=== PATIENT | female | born 1940 | race Caucasian/White ===

== ENCOUNTER 2018-11-24 13:51 | Observation (INO) ==
--- NOTE | 2018-11-24 14:09 | Emergency Department Note ---
Disposition Clinical Impression: Confusion with non-focal neuro exam, Nausea UTI (urinary tract infection) Qualifiers: Urinary tract infection type: site unspecified Hematuria presence: without hematuria Qualified Code(s): N39.0 - Urinary tract infection, site not specified Diarrhea Qualifiers: Diarrhea type: unspecified type Qualified Code(s): R19.7 - Diarrhea, u nspecified Disposition: Admitted As Inpatient Condition: Good Referrals: NONE,PCP [Non-Partnered Physician] - Forms: ED Satisfaction Letter Time of Disposition: 16:44 General Adult HPI - General Chief complaint: ED Weakness Stated complaint: medication reaction Source: patient, EMS Mode of arrival: EMS Limitations: no limitations Nursing Notes Reviewed: Yes Vital Signs Reviewed: Yes - History of Present Illness HPI Narrative: Patient presents to the ED via EMS with concern that she may be having a reaction to a new medication. She states her physician Paco Chavez started her on a new medication. She cannot recall the name of the medication or what it was prescribed for. She states she took the first dose of it last night. Today she has been feeling shaky, anxious and lightheaded as if she is "not in control". She also reports a few episodes of loose watery stools today. No blood noted. No vomiting or abdominal pain. States she was nauseous on the way to the ED but is no longer nauseated now. No chest pain or shortness of breath. She does report some palpitations however. No fever or chills. No urinary symptoms. No recent travel or sick contacts. She lives alone in an assisted living facility. States she called EMS because she did not know what else to do was scared about how she was feeling. Based on her medication list in the computer which is not updated she has a history of Alzheimer's and Parkinson's as well as depression. She denies any tobacco, alcohol or drug use. She has not taken any medications other than her other prescribed medications. - Related Data Home Medications Medication Instructions Recorded Confirmed Galantamine HBr [Razadyne ER] 24 mg PO DAILY 03/24/18 11/24/18 Latanoprost/Pf [Latanoprost 0.005% 1 drop OP DAILY 03/24/18 11/24/18 Eye Drop] Sertraline [Zoloft] 100 mg PO DAILY 03/24/18 11/24/18 Levothyroxine [Synthroid] 50 mcg PO DAILY 11/24/18 11/24/18 Allergies Allergy/AdvReac Type Severity Reaction Status Date / Time Penicillins [PCN] Allergy Hives Verified 04/21/18 13:09 cephalexin AdvReac Shakiness Verified 04/21/18 13:09 Mytlqfd-[id number]-Xru Reductase AdvReac See Verified 04/21/18 13:09 Inhibitor Comments [Statins] Constitutional: Denies: fever, chills, weakness, weight change Eyes: Denies: eye pain, eye discharge, vision change ENT ED: Denies: ear pain, throat pain, dental pain, hearing loss, epistaxis, congestion, dysphagia Cardiovascular: Reports: palpitations. Denies: chest pain, dyspnea on exertion, edema, syncope Respiratory: Denies: cough, dyspnea, wheezes, hemoptysis, stridor Gastrointestinal: Reports: diarrhea. Denies: abdominal pain, nausea, vomiting, constipation, hematemesis, melena, hematochezia Genitourinary: Denies: dysuria, frequency, hematuria, discharge Musculoskeletal: Denies: back pain, neck pain, arthralgia, myalgia Integumentary: Denies: rash, abrasion, lesions Neurological: Denies: headache, weakness, numbness, paresthesias, confusion, abnormal gait, vertigo Psychiatric: Reports: anxiety. 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 - Social History Smoking Status: Never smoker Smokeless Tobacco Status: No Alcohol use: Reports: none Drug use: Reports: none Physical Exam - General Limitations: no limitations General appearance: alert, in no apparent distress, anxious - Head Head exam: atraumatic, normocephalic, normal inspection - Eye Eye exam: Present: normal appearance, PERRL, EOMI - ENT ENT exam: normal exam, normal oropharynx, mucous membranes moist - Neck Neck exam: Present: normal inspection, full ROM, trachea midline - Chest Chest inspection: Present: normal inspection, symmetric chest wall rise - Respiratory Respiratory exam: Present: normal lung sounds bilaterally - Cardiovascular Cardiovascular exam: Present: regular rate, normal rhythm, normal heart sounds - Abdominal Exam Abdominal exam: Present: soft, Non-Tender. Absent: tenderness, distention, guarding, rebound, rigidity - Extremities Exam Extremities exam: Present: normal inspection, full ROM. Absent: tenderness, pedal edema - Back Exam Back exam: Present: normal inspection, full ROM. Absent: tenderness, CVA tenderness (R), CVA tenderness (L) - Neurological Exam Neurological exam: Present: alert, oriented X3 - Psychiatric Psychiatric exam: Present: normal affect, normal mood - Skin Skin exam: Present: warm, dry, intact, normal color Course Course Narrative: Patient presents to the ED complaining of feeling anxious, shaky and lightheaded with some palpitations after restarting the medication. She does not know her medications. According to computer records she has on Zoloft, carbidopa levodopa, doxycycline, latanoprost and galantamine. We are contacting [facility]'s pharmacy for additional information and have received some preliminary documentation that also includes levothyroxine as a medication. On arrival patient is afebrile, hemodynamically stable and nontoxic in appearance other she is slightly anxious. She is oriented to name and place but has some confusion about the date. Physical exam is overall unremarkable. EKG shows a sinus rhythm with multiple PVCs and evidence of LVH and possibly left atrial enlargement. There is no acute ischemic changes. Will look for prior's for comparison. Will obtain chest x-ray and lab work. - Reevaluation(s) Reevaluation #1: Patient has developed nausea again and will be given Zofran. Medication records from [facility] shows that patient most recently had a refill of Zoloft, 100 mg on or about November 06, levothyroxine 50 g on or around November 04 and galantamine ER 24 mg on or around October 26 based on refill due dates. The pharmacist did tell nursing staff that the Zoloft and galantamine doses have been increased from what they were in the past although it is unclear when those doses were increased. The only other active medication on the patient's list is latanoprost eyedrops. Time: 14:44 Reevaluation #2: Laboratory studies are unremarkable other than the possibility of a UTI. Chest x-ray was normal along with TSH and troponin. It remains unclear what medication the patient is referring to that she is insistent that she is on a new medication and does not use any other pharmacy. Her confusion may be due to UTI or simply a complication of her age and dementia. Patient is still having some loose stools and nausea. I discussed with patient the option of admission for monitoring and further evaluation and she is in agreement. We have paged the hospitalist and are awaiting callback at this time. Time: 16:33 Reevaluation #3: I spoke to the hospitalist, Dr. Linda was agreed to accept patient. Time: 16:43 Vital Signs Temperature 97.7 F 11/24/18 13:56 Pulse Rate 59 11/24/18 13:56 Respiratory Rate 18 11/24/18 13:56 Blood Pressure 130/55 11/24/18 13:56 O2 Sat by Pulse Oximetry 97 11/24/18 13:56 Temperature 97.7 F 11/24/18 13:56 Pulse Rate 58 11/24/18 16:33 Respiratory Rate 18 11/24/18 16:33 Blood Pressure 133/60 11/24/18 16:33 O2 Sat by Pulse Oximetry 98 11/24/18 16:33 Oxygen Delivery Oxygen Delivery Room Air Medical Decision Making - Medical Records Medical records reviewed: Yes I reviewed the patient's medical records. - Lab Data Lab results reviewed: Yes I reviewed the patient's lab results. Result diagrams: 11/24/18 14:25 11/24/18 14:25 Lab Results 11/24/18 11/24/18 11/24/18 Range/Units 14:25 14:25 14:25 WBC 9.5 (4.3-11.1) K/mcL RBC 4.23 (3.82-4.97) M/mcL Hgb 13.2 (11.5-15.4) g/dL Hct 39.7 (35.3-44.9) % MCV 93.9 (83.0-100.0) fL MCH 31.2 (28.0-33.3) pg MCHC 33.2 (31.6-35.5) g/dL RDW 13.7 (11.5-14.5) % Plt Count 161 (140-400) K/mcL MPV 11.5 (9.4-12.4) fL Immature Gran % 0.3 (0-4) % Seg Neutrophils % 87.1 % Lymphocytes % 8.0 % Monocytes % 4.1 % Eosinophils % 0.2 % Basophils % 0.3 % Neutrophils # 8.2 (1.6-8.9) K/mcL Lymphocytes # 0.8 (0.6-4.6) K/mcL Monocytes # 0.4 (0.0-1.3) K/mcL Eosinophils # 0.0 (0.0-0.6) K/mcL Basophils # 0.0 (0.0-0.2) K/mcL Sodium 137 (136-145) mEq/L Potassium 3.7 (3.5-5.1) mEq/L Chloride 103 (98-107) mEq/L Carbon Dioxide 23 (23-29) mEq/L BUN 15 (8-23) mg/dL Creatinine 0.84 (0.60-1.20) mg/dL Est GFR ( Amer) > 60 (> 60) Est GFR (Non-Af Amer) > 60 (> 60) BUN/Creatinine Ratio 18 (6-26) Glucose 166 H (70-105) mg/dL Calculated Osmolality 289 (280-300) Calcium 8.7 (8.6-10.3) mg/dL Total Bilirubin 0.4 (0.3-1.0) mg/dL AST 27 (13-39) Units/L ALT 19 (7-52) Units/L Alkaline Phosphatase 84 (34-104) Units/L Troponin I < 0.03 (< 0.04) ng/mL Serum Total Protein 6.5 (6.4-8.9) g/dL Albumin 3.8 (3.5-5.7) g/dL Globulin 2.7 (2.4-3.5) g/dL Albumin/Globulin Ratio 1.4 (1.1-2.2) TSH 1.319 (0.340-5.600) mcIU/mL Urine Color (Yellow) Urine Clarity (Clear) Urine pH (5.0-8.0) pH Units Ur Specific [place] (1.010-1.025) Urine Protein (Neg-Trace) mg/dL Urine Glucose (UA) (Normal) mg/dL Urine Ketones (Negative) mg/dL Urine Blood (Negative) Urine Nitrite (Negative) Urine Bilirubin (Negative) Urine Urobilinogen (Normal) mg/dL Ur Leukocyte Esterase (Negative) Urine Microscopic RBC (0-3) per hpf Urine Microscopic WBC (0-3) per hpf Ur Squamous Epith Cells (None-Few) per lpf Urine Bacteria (None-Few) per hpf Hyaline Casts (None-Few) per lpf Granular Casts (None Seen) per lpf Urine Mucus (Few) Ur Culture Indicated? (NO) 11/24/18 Range/Units 15:00 WBC (4.3-11.1) K/mcL RBC (3.82-4.97) M/mcL Hgb (11.5-15.4) g/dL Hct (35.3-44.9) % MCV (83.0-100.0) fL MCH (28.0-33.3) pg MCHC (31.6-35.5) g/dL RDW (11.5-14.5) % Plt Count (140-400) K/mcL MPV (9.4-12.4) fL Immature Gran % (0-4) % Seg Neutrophils % % Lymphocytes % % Monocytes % % Eosinophils % % Basophils % % Neutrophils # (1.6-8.9) K/mcL Lymphocytes # (0.6-4.6) K/mcL Monocytes # (0.0-1.3) K/mcL Eosinophils # (0.0-0.6) K/mcL Basophils # (0.0-0.2) K/mcL Sodium (136-145) mEq/L Potassium (3.5-5.1) mEq/L Chloride (98-107) mEq/L Carbon Dioxide (23-29) mEq/L BUN (8-23) mg/dL Creatinine (0.60-1.20) mg/dL Est GFR ( Amer) (> 60) Est GFR (Non-Af Amer) (> 60) BUN/Creatinine Ratio (6-26) Glucose (70-105) mg/dL Calculated Osmolality (280-300) Calcium (8.6-10.3) mg/dL Total Bilirubin (0.3-1.0) mg/dL AST (13-39) Units/L ALT (7-52) Units/L Alkaline Phosphatase (34-104) Units/L Troponin I (< 0.04) ng/mL Serum Total Protein (6.4-8.9) g/dL Albumin (3.5-5.7) g/dL Globulin (2.4-3.5) g/dL Albumin/Globulin Ratio (1.1-2.2) TSH (0.340-5.600) mcIU/mL Urine Color Yellow (Yellow) Urine Clarity Clear (Clear) Urine pH 6.0 (5.0-8.0) pH Units Ur Specific [place] >= 1.030 H (1.010-1.025) Urine Protein Negative (Neg-Trace) mg/dL Urine Glucose (UA) Normal (Normal) mg/dL Urine Ketones 40 H (Negative) mg/dL Urine Blood Trace-lysed H (Negative) Urine Nitrite Negative (Negative) Urine Bilirubin Negative (Negative) Urine Urobilinogen Normal (Normal) mg/dL Ur Leukocyte Esterase Negative (Negative) Urine Microscopic RBC 0-3 (0-3) per hpf Urine Microscopic WBC 3-5 H (0-3) per hpf Ur Squamous Epith Cells Few (None-Few) per lpf Urine Bacteria Few (None-Few) per hpf Hyaline Casts Few (None-Few) per lpf Granular Casts Few H (None Seen) per lpf Urine Mucus Moderate H (Few) Ur Culture Indicated? YES A (NO) - Radiology Data Radiology results reviewed: Yes I reviewed the patient's radiology results. ITS Impressions Chest X-Ray 11/24/18 14:10 IMPRESSION: No acute process. D/ / 11/24/2018 15:07:55 Rajesh Reilly MD / [facility] Interpreting Provider: Rajesh Reilly MD - EKG Data EKG #1 EKG attestation: Yes I reviewed and interpreted this EKG. EKG shows normal: sinus rhythm Rate: normal Rhythm: NSR, PVC's [place]/QRS: normal, IVCD Voltage: c/w LVH Interpretation: no acute changes
[2018-11-24 14:35] LABS: Basophils % 0.3 %; Eosinophils % 0.2 %; Hematocrit 39.7 % (35.3-44.9); Hemoglobin 13.2 g/dL (11.5-15.4); Immature Granulocytes % 0.3 % (0-4); Lymphocytes # 0.8 K/mcL (0.6-4.6); Mean Corpuscular HGB Conc 33.2 g/dL (31.6-35.5); Mean Corpuscular Hemoglobin 31.2 pg (28.0-33.3); Mean Corpuscular Volume 93.9 fL (83.0-100.0); Mean Platelet Volume 11.5 fL (9.4-12.4); Monocytes # 0.4 K/mcL (0.0-1.3); Monocytes % 4.1 %; Neutrophils # 8.2 K/mcL (1.6-8.9); Platelet Count 161 K/mcL (140-400); Red Blood Count 4.23 M/mcL (3.82-4.97); Red Cell Distribution Width 13.7 % (11.5-14.5); Segmented Neutrophils % 87.1 %; White Blood Count 9.5 K/mcL (4.3-11.1)
[2018-11-24] MEDS ORDERED: Ondansetron 4 MG/2 ML VIAL IVP ONE (14:36)
[2018-11-24] MEDS ORDERED: Ondansetron 4 MG/2 ML VIAL ONE ×2 (14:37→17:39)
[2018-11-24 14:55] LABS: Troponin I < 0.03 ng/mL (< 0.04)
[2018-11-24 14:56] LABS: Alanine Aminotransferase 19 Units/L (7-52); Albumin 3.8 g/dL (3.5-5.7); Albumin/Globulin Ratio 1.4 (1.1-2.2); Alkaline Phosphatase 84 Units/L (34-104); Aspartate Amino Transferase 27 Units/L (13-39); BUN/Creatinine Ratio 18 (6-26); Bilirubin,Total 0.4 mg/dL (0.3-1.0); Blood Urea Nitrogen 15 mg/dL (8-23); Calcium 8.7 mg/dL (8.6-10.3); Carbon Dioxide 23 mEq/L (23-29); Chloride 103 mEq/L (98-107); Globulin 2.7 g/dL (2.4-3.5); Glucose 166 mg/dL (70-105); Osmolality,Calculated 289 (280-300); Potassium 3.7 mEq/L (3.5-5.1); Sodium 137 mEq/L (136-145); Total Protein 6.5 g/dL (6.4-8.9); eGFR For African Americans > 60 (> 60); eGFR For Non-African Americans > 60 (> 60)
[2018-11-24 15:13] LABS: Bilirubin,Urine Negative (Negative); Blood,Urine Trace-lysed (Negative); Clarity,Urine Clear (Clear); Color,Urine Yellow (Yellow); Glucose,Urine (UA) Normal (Normal); Ketones,Urine 40 mg/dL (Negative); Leukocyte Esterase,Urine Negative (Negative); Nitrite,Urine Negative (Negative); Protein,Urine Negative (Neg-Trace); Specific Gravity,Urine >= 1.030 (1.010-1.025); Urobilinogen,Urine Normal (Normal)
[2018-11-24 15:21] LABS: Bacteria,Urine Few per hpf (None-Few); Granular Casts,Urine Few per lpf (None Seen); Hyaline Casts,Urine Few per lpf (None-Few); Mucus,Urine Moderate (Few); RBC,Urine 0-3 per hpf (0-3); Squamous Epithelial Cell,Urine Few per lpf (None-Few)
[2018-11-24] MEDS ORDERED: 0.9 % Sodium Chloride 1,000 ML IVC SCH (16:45)
[2018-11-24] MEDS ORDERED: Naloxone 0.4 MG/ML INJ IVP PRN ×2 (16:46→17:39)
[2018-11-24] MEDS ORDERED: Ondansetron 4 MG/2 ML VIAL IVP PRN ×2 (16:46→17:39)
[2018-11-24] MEDS ORDERED: Nitrofurantoin (BID) 100 MG CAPSULE PO SCH (17:00)
[2018-11-25] MEDS: 0.9 % Sodium Chloride 1,000 ML IVC SCH ×2 (01:00→07:27)
[2018-11-25] MEDS ORDERED: Levothyroxine 25 MCG TABLET PO SCH (06:30)
[2018-11-25] MEDS ORDERED: Nitrofurantoin (BID) 100 MG CAPSULE PO SCH (08:00)
[2018-11-25] MEDS ORDERED: Latanoprost 2.5 ML BOTTLE BOTH EYES SCH (09:00)
[2018-11-25] MEDS ORDERED: Galantamine Hbr [Razadyne Er] 24 MG PO SCH (09:00)
--- NOTE | 2018-11-25 10:11 | Internal Med History&Physical ---
Date of Encounter: 11/25/18 Time of Encounter: 09:35 Assessment and Plan (1) Diarrhea Current visit: Yes Status: Acute Suspect viral gastroenteritis. She states she has improved and feels stable for discharge home. Qualifiers: Diarrhea type: unspecified type Qualified Code(s): R19.7 - Diarrhea, u nspecified (2) Hypothyroidism Current visit: Yes Status: Chronic TSH in ER was normal at 1.319. Continue present dose Synthroid. Qualifiers: Hypothyroidism type: unspecified Qualified Code(s): E03.9 - Hypothyroidism, unspecified Internal Medicine - H&P: HPI Chief complaint: Diarrhea Admitted From: Emergency Dept Plans for Post Hospital Care: Home History of present illness: Ms. Pérez is a 78 year old female who came to emergency room stating shortly after awakening she began feeling "bad". She reports multiple episodes of nonbloody watery diarrhea and "shaking". She thinks she had fever but did not take her temperature. She denies vomiting or significant abdominal pain. When symptoms did not improve after a few hours she called EMS and was brought to emergency room. She was evaluated and was found to have neutrophilia without leukocytosis. She had concentrated urine. She was admitted to [facility] floor for ongoing care needs. She states she feels improved at the present time. She reports a single BM this morning that was more formed than stools yesterday. She denies significant pain. GI history is pertinent otherwise for cholecystectomy but she denies disorders of her liver or exocrine pancreas. Past Med Surg Social Fam HX - Past Medical History Medical history: atrial fibrillation, dementia, thyroid disease Additional medical history: Lewy body dementia. parkinsons Psychiatric history: anxiety, depression, other - Past Surgical History Surgical History: appendectomy, cholecystectomy, hysterectomy, orthopedic, other Additional surgical history: back surgery, rotator cuff repair, hernia repair, heart cath, Lewy body dementia - Social History Smoking Status: Never smoker Smokeless Tobacco Status: No Alcohol use: none Drug use: none - Family History Father Adopted: [place]: lisa Family Member Ethnicity: Non- Living Status: Cause of : MS Hx Family Cardiac Disorders: Yes Hx Family Respiratory Disorders: No Hx Family Cancer: No Hx Family GI Disorders: No Hx Family Genitourinary Disorders: No Hx Family Endocrine Disorder: No Hx Family Musculoskeletal Disorders: No Hx Family Neuromuscular Disorders: No Hx Family Neurologic Disorders: No Hx Family HEENT Disorders: No Hx Family Autoimmune Disorders: No Hx Family Reproductive Disorders: No Hx Family Psychosocial Disorders: No Hx Family Medical Disorders: No Mother Adopted: [place]: Destiney Age: 40 Family Member Ethnicity: Non- Living Status: Age at : 40 Cause of : suicide Hx Family Cardiac Disorders: No Hx Family Respiratory Disorders: No Hx Family Cancer: No Hx Family GI Disorders: No Hx Family Genitourinary Disorders: No Hx Family Endocrine Disorder: No Hx Family Musculoskeletal Disorders: Yes (parapeligic) Hx Family Neuromuscular Disorders: No Hx Family Neurologic Disorders: No Hx Family HEENT Disorders: No Hx Family Autoimmune Disorders: No Hx Family Reproductive Disorders: No Hx Family Psychosocial Disorders: No Hx Family Medical Disorders: No Internal Medicine - H&P: Meds Galantamine HBr [Razadyne ER] 24 mg PO DAILY 03/24/18 [History] Latanoprost/Pf [Latanoprost 0.005% Eye Drop] 1 drop OP DAILY 03/24/18 [History] Sertraline [Zoloft] 100 mg PO DAILY 03/24/18 [History] Levothyroxine [Synthroid] 50 mcg PO DAILY 11/24/18 [History] Allergy/AdvReac Type Severity Reaction Status Date / Time Penicillins [PCN] Allergy Hives Verified 04/21/18 13:09 cephalexin AdvReac Shakiness Verified 04/21/18 13:09 Slikopp-Vdy-Hrl Reductase AdvReac See Verified 04/21/18 13:09 Inhibitor Comments [Statins] All Systems PM: A 10-system review of systems was performed and is negative for pertinent findings except as documented above in the HPI. Review of systems: Gen.: She states her weight has been stable for several months Cardiovascular: She denies hypertension MS heart failure angina DVT or pulmonary embolus Respiratory: She is a lifelong nonsmoker and denies chronic lung disease GI: She denies disorders of her liver gallbladder or exocrine pancreas : She denies hematuria dysuria or kidney stones. She reports JUJU/BSO in the past. Neurologic: She has been diagnosed with Lewy body dementia by a [place] neurologist and is on galantamine. She denies large distribution strokes or seizures. Endocrine: She has hypothyroidism but denies hyperlipidemia or diabetes Hematology/oncology: She has had skin cancer removal. She denies internal malignancies, anemia, or other blood disorders Psychiatric: She has depression but denies anxiety or other mental health diagnoses. [place] skeletal: She has DJD. She is uncertain if she has been diagnosed with gout. She reports right rotator cuff surgery approximately 20 years ago. She reports low back surgery several years ago but does not remember details. - Constitutional Vitals: Temp Pulse Resp BP Pulse Ox 98.4 F 66 20 113/60 97 11/25/18 06:33 11/25/18 06:33 11/25/18 06:33 11/25/18 06:33 11/25/18 06:33 Exam: Gen.: She is a well-developed well-nourished female resting comfortably in bed who appears in no severe distress at present time HEENT: Head is atraumatic and normocephalic. Eyes: EOMI. There is no scleral icterus. Mouth: Mucosa is moist. Neck: Supple and nontender. There is no thyromegaly or adenopathy noted. Heart: Regular without murmurs gallops or ectopics Lungs: No wheezes or crackles are heard. Abdomen: Soft and nontender. No masses or guarding are noted. Extremities: There is no cyanosis edema or clubbing noted. Dorsalis pedis and posterior tibial pulses are 1-2 over 2 bilaterally. Neurologic: Mental status: She is talkative and a fair to good historian. She does not remember some details of her history. Cranial nerves: Smile is symmetric. Forehead wrinkles bilaterally. Tongue protrudes midline. EOMI. Motor: There is no pronator drift. There is no cogwheeling or rigidity on passive range of motion of her arms or wrists. Cerebellar: Finger to nose is intact bilaterally. Skin: Warm and dry Internal Med - H&P Results - Labs CBC & Chem 7: 11/24/18 14:25 11/24/18 14:25 Labs: Short CBC 11/24/18 Range/Units 14:25 WBC 9.5 (4.3-11.1) K/mcL Hgb 13.2 (11.5-15.4) g/dL Hct 39.7 (35.3-44.9) % Plt Count 161 (140-400) K/mcL Neutrophils # 8.2 (1.6-8.9) K/mcL BMP 11/24/18 14:25 Sodium 137 Potassium 3.7 Chloride 103 Carbon Dioxide 23 BUN 15 Creatinine 0.84 Glucose 166 H Calcium 8.7 Cardiac Enzymes 11/24/18 Range/Units 14:25 Troponin I < 0.03 (< 0.04) ng/mL Liver Function 11/24/18 Range/Units 14:25 Total Bilirubin 0.4 (0.3-1.0) mg/dL AST 27 (13-39) Units/L ALT 19 (7-52) Units/L Alkaline Phosphatase 84 (34-104) Units/L Albumin 3.8 (3.5-5.7) g/dL Urine 11/24/18 Range/Units 15:00 Urine Color Yellow (Yellow) Urine Clarity Clear (Clear) Urine pH 6.0 (5.0-8.0) pH Units Ur Specific [place] >= 1.030 H (1.010-1.025) Urine Protein Negative (Neg-Trace) mg/dL Urine Glucose (UA) Normal (Normal) mg/dL - Impressions ITS Impressions Chest X-Ray 11/24/18 14:10 IMPRESSION: No acute process. D/ / 11/24/2018 15:07:55 Rajesh Reilly MD / [facility] Interpreting Provider: Rajesh Reilly MD - VTE Reasons for not Prescribing Prophylaxis: Treatment not Indicated - Low risk for VTE
--- NOTE | 2018-11-25 10:23 | Discharge Summary ---
Orders not resulted at time of discharge: Pending orders 11/24/18 15:00 Culture,Urine [RM] Stat Date of Encounter: 11/25/18 Time of Encounter: 09:35 - Discharge Diagnosis (1) Diarrhea Priority: Primary Status: Acute Qualifiers: Diarrhea type: unspecified type Qualified Code(s): R19.7 - Diarrhea, unspecified (2) Hypothyroidism Priority: Secondary Status: Chronic Qualifiers: Hypothyroidism type: unspecified Qualified Code(s): E03.9 - Hypothyroidism, unspecified Hospital course: Ms. Pérez is a 78 year old female who came to emergency room stating shortly after awakening she began feeling "bad". She reports multiple episodes of nonbloody watery diarrhea and "shaking". She thinks she had fever but did not take her temperature. She denies vomiting or significant abdominal pain. When symptoms did not improve after a few hours she called EMS and was brought to emergency room. She was evaluated and was found to have neutrophilia without leukocytosis. She had concentrated urine. She was admitted to [facility] floor for ongoing care needs. Initial orders were written by the emergency room physician. I saw her on November 25 and performed the history physical and discharge. By the time I saw her she stated her diarrhea had significantly decreased. She reported a single BM the morning of November 25 which was more formed than stools the previous day. She felt stable for discharge home which I felt was reasonable. I told her I felt she had viral gastroenteritis and did not require antibiotics or further workup or Rx at this time. She will follow with her PCP Dr. Paco Chavez within 1 week. - Time Spent with Patient Total time spent providing and/or coordinating discharge services: - Discharge Medications Prescriptions: Continued Sertraline [Zoloft] 100 mg PO DAILY Latanoprost/Pf [Latanoprost 0.005% Eye Drop] 1 drop OP DAILY Galantamine HBr [Razadyne ER] 24 mg PO DAILY Levothyroxine [Synthroid] 50 mcg PO DAILY Home Medications: Galantamine HBr [Razadyne ER] 24 mg PO DAILY 03/24/18 [History] Latanoprost/Pf [Latanoprost 0.005% Eye Drop] 1 drop OP DAILY 03/24/18 [History] Sertraline [Zoloft] 100 mg PO DAILY 03/24/18 [History] Levothyroxine [Synthroid] 50 mcg PO DAILY 11/24/18 [History] Allergies/Adverse Reactions: Allergy/AdvReac Type Severity Reaction Status Date / Time Penicillins [PCN] Allergy Hives Verified 04/21/18 13:09 cephalexin AdvReac Shakiness Verified 04/21/18 13:09 Quuqxor-Wpw-Iyb Reductase AdvReac See Verified 04/21/18 13:09 Inhibitor Comments [Statins] Date of admission: 11/24/18 17:05 Primary care physician: Paco Chavez MD Consults: 11/24/18 18:45 Consult to [employer] [CONS] Routine Reason for SW Consult: lives alone in [place] apartments and may consider assisted living due to lewy body dementia - Constitutional Vitals: Temp Pulse Resp BP Pulse Ox 98.4 F 66 20 113/60 97 11/25/18 06:33 11/25/18 06:33 11/25/18 06:33 11/25/18 06:33 11/25/18 06:33 - Patient Status Disposition: Home, Self-Care Condition: Good - Discharge Instructions Follow Up With: Paco Chavez MD [Primary Care Provider] - 1 week - Diet and Activity Activity: resume usual activities as tolerated Diet: advance to your usual diet - VTE Reasons for not Prescribing Prophylaxis: Treatment not Indicated - Low risk for VTE
--- NOTE | 2018-11-25 10:27 | Physician Discharge Referral ---
Home Health/Hosp Referral Info Transfer to: Home Health Attending Provider: Alexei Provider in Charge Post Discharge: PCP (Paco Chavez M.D.) - Diagnosis (1) Diarrhea Priority: Primary Status: Acute (2) Hypothyroidism Priority: Secondary Status: Chronic - Respiratory Orders Smoking Cessation: Smoking cessation has been advised. For more information, call the [place] Tobacco Quit Line at 7-859-FTMF-NOW. - Diet/Nutrition Diet/Nutrition Orders: Regular - Activity Activity Orders: Ambulate - Services Needed Following services are medically necessary services: Nursing, Home Health Aide, Physical Therapy, Occupational Therapy - Transfer Medications Home Medications: Galantamine HBr [Razadyne ER] 24 mg PO DAILY 03/24/18 [History] Latanoprost/Pf [Latanoprost 0.005% Eye Drop] 1 drop OP DAILY 03/24/18 [History] Sertraline [Zoloft] 100 mg PO DAILY 03/24/18 [History] Levothyroxine [Synthroid] 50 mcg PO DAILY 11/24/18 [History] Allergies/Adverse Reactions: Allergy/AdvReac Type Severity Reaction Status Date / Time Penicillins [PCN] Allergy Hives Verified 04/21/18 13:09 cephalexin AdvReac Shakiness Verified 04/21/18 13:09 Pniaftl-Qgm-Gdv Reductase AdvReac See Verified 04/21/18 13:09 Inhibitor Comments [Statins] Certification: Further, I certify that my clinical findings support that this patient is homebound (i.e. absences from home require considerable and taxing effort and are for medical reasons or congregational services or infrequently or short duration when for other reasons) because: Homebound Reason: Leaving home requires considerable and taxing effort due to condition (Dementia, diarrhea) Attestation: My signature below is to certify that this patient is under my care and that I, or nurse practitioner, or a physician's assistant manager pt working with me, has a [id number] encounter with this patient.
[2018-11-25 10:43] VITALS: BP 114/66
--- NOTE | 2018-11-26 09:41 | Electrocardiograph Report ---
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
== END 2018-11-25 13:00 | disposition home or self-care (01) ==
LOC: INPPIK 13:51 → EMEROOPIK 13:51 → INPPIK 18:10
PROVIDERS: ADMIT Internal Medicine; ATTEND Internal Medicine